=== PATIENT | female | born 2000 | race Two or more races ===

== ENCOUNTER 2025-03-05 10:44 | Outpatient (CLI) | payer OTHER | END 2025-03-05 10:53 | disposition home or self-care (01) | LOC: PRENATAL 10:44 | PROVIDERS: ATTEND Obstetrics & Gynecology Maternal & Fetal Medicine | DX: O36.80X0 Pregnancy with inconclusive fetal viability, not applicable or unspecified (principal); O26.859 Spotting complicating pregnancy, unspecified trimester; O09.90 Supervision of high risk pregnancy, unspecified, unspecified trimester; Z3A.11 11 weeks gestation of pregnancy ==